=== PATIENT | female | born 1965 | race Caucasian/White ===

== ENCOUNTER 2018-05-28 22:22 | Observation (INO) | payer SELFPAY ==
[~2018-05-28] VITALS: Ht 162.6 cm; Wt 76.7 kg
[~2018-05-28 22:22] MED LIST: HYDROCHLOROTHIA25 MG PO; KEFLEX500 MG PO; LEVOTHYROXINE50 MCG PO; METFORMIN HCL1000 MG PO; TYLENOL WITH C1 EACH PO
[2018-05-28 23:53] LABS: BASOPHILS # (AUTO) 0.1 (0.0-0.1); BASOPHILS % 0.5 % (0.0-1.0); EOSINOPHILS # (AUTO) 0.1 (0.0-0.4); EOSINOPHILS % 0.7 % (0.0-6.0); HEMOGLOBIN 14.6 g/dL (12.0-16.0); LYMPHOCYTES # (AUTO) 1.5 (1.0-3.2); LYMPHOCYTES % 16.5 % (18.0-39.1); MEAN CORPUSCULAR HEMOGLOBIN 31.4 pg (28-32); MEAN CORPUSCULAR VOLUME 92.5 fL (81-99); MONOCYTES # (AUTO) 0.6 (0.2-0.8); NEUTROPHILS # (AUTO) 7.1 (2.1-6.9); PLATELET COUNT 277 x10e3/uL (140-360); RED BLOOD COUNT 4.65 x10e6/uL (3.6-5.1); RED CELL DISTRIBUTION WIDTH 13.2 % (11.7-14.4)
[2018-05-28 23:57] LABS: INR 0.95; PARTIAL THROMBOPLASTIN TIME 25.8 seconds (23.8-35.5); PROTHROMBIN TIME 11.9 seconds (11.9-14.5)
[2018-05-29 00:03] LABS: BILIRUBIN,URINE NEGATIVE (NEGATIVE); CLARITY,URINE CLEAR (CLEAR); COLOR,URINE STRAW (YELLOW); EPITHELIAL CELLS,URINE FEW /LPF; KETONES,URINE NEGATIVE (NEGATIVE); LEUKOCYTE ESTERASE ,URINE NEGATIVE (NEGATIVE); NITRITE,URINE NEGATIVE (NEGATIVE); PROTEIN,URINE DIPSTICK NEGATIVE (NEGATIVE); RBC,URINE 0-5 /HPF (0-5); URINE UROBILINOGEN 0.2 mg/dL (0.2 - 1); WBC,URINE (MAN) 0-5 /HPF (0-5)
[2018-05-29 00:05] LABS: ALANINE AMINOTRANSFERASE 8 IU/L (0-55); ALBUMIN 3.8 g/dL (3.5-5.0); ALKALINE PHOSPHATASE 124 IU/L (40-150); ANION GAP 17.9 mmol/L (8-16); BLOOD UREA NITROGEN 6 mg/dL (7-26); BUN/CREATININE RATIO 8 (6-25); CALCIUM 10.2 mg/dL (8.4-10.2); CARBON DIOXIDE 28 mmol/L (22-29); CHLORIDE 100 mmol/L (98-107); CREATINE KINASE 47 IU/L (29-168); CREATININE, SERUM 0.79 mg/dL (0.57-1.11); EST GLOMERULAR FILTRATION RATE > 60 ML/MIN (60-); GLUCOSE 176 mg/dL (74-118); SODIUM 143 mmol/L (136-145)
[2018-05-29 00:06] LABS: POTASSIUM 2.9 mmol/L (3.5-5.1)
[2018-05-29] MEDS ORDERED: POTASSIUM CHLORIDE 20 MEQ TAB CR PO STA (00:07)
[2018-05-29 00:20] LABS: MAGNESIUM 1.5 MG/DL (1.3-2.1)
--- NOTE | 2018-05-29 00:33 | Diagnostic Imaging Report ---
EXAM: CHEST 2 VIEWS, PA and lateral INDICATION: Heart palpitations COMPARISON: PA and lateral view of the chest August 20, 2015 FINDINGS: LINES/TUBES: Stable position right internal jugular vein chest port. LUNGS: No consolidations or edema. Stable scarring left lung base. PLEURA: No effusions or pneumothorax. HEART AND MEDIASTINUM: Normal size and contour. BONES AND SOFT TISSUES: No acute findings. IMPRESSION: No acute thoracic abnormality. Signed by: Dr. Paty Solis M.D. on 05/29/2018 12:29 AM
[2018-05-29 00:46] LABS: THYROID STIMULATING HORMONE 5.631 uIU/mL (0.350-4.940)
[2018-05-29] MEDS ORDERED: ADENOSINE 6MG/2ML 3 ML ONE (01:28)
[2018-05-29] MEDS ORDERED: SODIUM CHLORIDE 0.9% 1000ML 1,000 ML ONE (01:28)
[2018-05-29] MEDS ORDERED: ADENOSINE 6 MG/2 ML VIAL IV ONE (01:30)
[2018-05-29] MEDS ORDERED: KCL 20MEQ/.9 SOD CHL 1,000 ML IV STA (01:30)
[2018-05-29] MEDS ORDERED: KCL 20MEQ/.9 SOD CHL 1,000 ML IV ONE (01:34)
[2018-05-29 01:52] LABS: AMPHETAMINES SCREEN,URINE NEGATIVE (NEGATIVE); BENZODIAZEPINES SCREEN,URINE NEGATIVE (NEGATIVE); PHENCYCLIDINE SCREEN,URINE NEGATIVE (NEGATIVE)
[2018-05-29] MEDS ORDERED: METOPROLOL TARTRATE 25 MG TAB PO ONE (02:00)
[2018-05-29] MEDS ORDERED: METOPROLOL TARTRATE 25 MG TAB PO STA (02:37)
[2018-05-29] MEDS ORDERED: METOPROLOL TARTRATE 25 MG TAB ONE (02:41)
[2018-05-29] MEDS ORDERED: ONDANSETRON HCL INJ 2 MG/ML VIAL IV PRN (03:15)
[2018-05-29] MEDS ORDERED: DEXTROSE 50% SYRINGE 50 ML IV PRN (03:15)
[2018-05-29 04:00] VITALS: BP 142/77
[2018-05-29] MEDS ORDERED: HYDROCHLOROTHIA25 MG PO (04:44)
[2018-05-29 08:05] VITALS: BP 121/79
[2018-05-29 08:08] VITALS: BP 121/79
[2018-05-29] MEDS: INSULIN REGULAR, HUMAN 100 UNIT/1 ML 3ML VIAL SQ SCH ×2 (08:45→11:30)
[2018-05-29] MEDS ORDERED: LEVOTHYROXINE SODIUM 50 MCG TAB PO SCH (09:00)
[2018-05-29] MEDS ORDERED: METFORMIN HCL 500 MG TAB PO SCH (09:00)
[2018-05-29] MEDS ORDERED: METOPROLOL TARTRATE 25 MG TAB PO SCH (09:00)
[2018-05-29] MEDS ORDERED: ASPIRIN 81 MG ENTERIC COATED PO SCH (09:00)
[2018-05-29 09:17] LABS: CREATINE KINASE 38 IU/L (29-168)
[2018-05-29 09:18] LABS: FREE THYROXINE INDEX 2.4301 (1.4-3.8); THYROID STIMULATING HORMONE 3.782 uIU/mL (0.350-4.940)
--- NOTE | 2018-05-29 09:22 | History and Physical ---
REFERRING PHYSICIAN: Dr. Josey Rosen HISTORY OF PRESENT ILLNESS: The patient is a 52-year-old woman. She has a history of breast cancer 2 years ago. She had a lumpectomy and lymph node dissection. She did have spread to the axillary nodes. She received 3 cycles of chemotherapy and completed her treatment 2 years ago. Her last mammogram a year and a half ago was normal. She has a history of supraventricular tachycardia several years ago when she had a low potassium from chemotherapy. She now comes to the emergency department with palpitations. She does not complain of chest pain or difficulty breathing. EKG shows supraventricular tachycardia. She converted with medications. PAST SURGICAL HISTORY: Status post breast surgery. PAST MEDICAL HISTORY: 1. Breast cancer as noted above. 2. Hypertension. 3. Diabetes mellitus. 4. Hypothyroidism. SOCIAL HISTORY: Patient is not a smoker, and active drinker. FAMILY HISTORY: Significant for hypertension. ALLERGIES: THERE ARE NO KNOWN DRUG ALLERGIES. REVIEW OF SYSTEMS: The patient had no fever or headache. There is no neck pain. She has no chest pain. There is no dyspnea or cough. She has no abdominal pain. There is no nausea or vomiting. She has no leg edema. There are no neurological complaints. PHYSICAL EXAMINATION: VITAL SIGNS: The patient is afebrile. She is in normal sinus rhythm at this time. Her blood pressure is 121/79 and her pulse ox is 96%. HEENT: Showed no facial swelling or erythema. The nasal mucosa is normal. The oropharynx is normal. LYMPHATIC: Showed no submandibular, cervical, or supraclavicular adenopathy. CARDIAC: Reveals a regular rate and rhythm with a normal S1 and S2. CHEST: Auscultation of lungs reveals clear breath sounds bilaterally. There is no wheezing. ABDOMEN: Soft and nontender. There is no rebound or guarding. EXTREMITIES: Examination of the extremities shows no leg edema or calf tenderness. There is no cyanosis or clubbing. SKIN: Shows no rashes. NEUROLOGICAL: Shows no focal abnormalities. IMPRESSION: 1. Supraventricular tachycardia. 2. Hypokalemia. 3. History of breast cancer. 4. History of hypertension. PLAN: 1. Patient will have an echocardiogram and cardiology consultation. 2. Replete potassium. 3. Check magnesium. 4. Check thyroid function test. Job#: [id number]
[2018-05-29] MEDS ORDERED: POTASSIUM CHLORIDE 20 MEQ TAB CR PO ONE (09:30)
[2018-05-29 12:25] VITALS: BP 123/83
--- NOTE | 2018-05-29 13:02 | Consultation ---
DATE OF CONSULTATION: May 29, 2018 CARDIOLOGY CONSULTATION REFERRING PHYSICIAN: Dr. Javon Chambers. REASON FOR CONSULTATION: Paroxysmal supraventricular tachycardia. HISTORY OF PRESENT ILLNESS: Ms. Forman is a 52-year-old woman with a history of breast cancer status post lumpectomy and lymph node dissection, diabetes, hypertension, and history of paroxysmal supraventricular tachycardia in the setting of an electrolyte derangement while on chemotherapy, who reports taking hydrochlorothiazide and antihypertensive at home. She presents to the emergency department with complaints of palpitation and was noted to have paroxysmal supraventricular tachycardia that was treated appropriately in the ER, currently in sinus rhythm. Her potassium initially was 2.9 and is currently being repleted. She denies any chest pain or syncope. She has no other complaints at this point in time. REVIEW OF SYSTEMS: A 12-system review negative except for as noted above. ALLERGIES: NO KNOWN DRUG ALLERGIES. PAST MEDICAL HISTORY: As described above. Hypertension, diabetes mellitus, hypothyroidism, paroxysmal supraventricular tachycardia, and breast cancer status post lumpectomy and lymph node resection. FAMILY HISTORY: Noncontributory. SOCIAL HISTORY: Denies smoking, alcohol or drugs. PHYSICAL EXAMINATION VITAL SIGNS: Temperature 96.6, heart rate 79, blood pressure is 121/79, respiratory rate 18, O2 sat 96%. GENERAL: In no acute distress. Alert. NECK: No JVD. CHEST: Clear to auscultation. CARDIOVASCULAR: Regular rate and rhythm. Normal S1 and S2. No S3 or S4. No murmurs or rubs. ABDOMEN: Soft, nontender. EXTREMITIES: No edema. Warm distal extremities. ELECTROCARDIOGRAM: Sinus rhythm with poor R-wave progression in precordial leads. STUDIES: Reviewed. Potassium 2.9, sodium 143, bicarbonate 28, creatinine 0.79, glucose 176. White blood cells 9.3, hemoglobin 14.6, platelets 177. INR 0.9, AST 12, ALT 8. CARDIOVASCULAR MEDICATIONS: Reviewed. On aspirin 81 mg daily, metoprolol tartrate 12.5 mg every 12 hours, levothyroxine. TSH was within normal range. ASSESSMENT 1. Paroxysmal supraventricular tachycardia, currently in sinus rhythm. 2. Hypokalemia. 3. Hypertension. 4. Diabetes mellitus. 5. Hypothyroidism. 6. History of breast cancer. RECOMMENDATIONS 1. Had advised on switching home antihypertensives from hydrochlorothiazide to beta edith and to have outpatient followup and further workup as needed and assess response as outpatient. 2. Correct electrolyte derangement. 3. Outpatient followup advised in 4 to 8 weeks. Job#: [id number]
[2018-05-29] MEDS ORDERED: LOPRESSOR25 MG PO (14:05)
[2018-05-29 14:45] LABS: CREATINE KINASE 31 IU/L (29-168)
== END 2018-05-29 15:00 | disposition home or self-care (01) ==
LOC: ER 22:22 → ERHOLD 05-29 03:09 → MED/SURG2 05-29 03:37
PROVIDERS: ADMIT Internal Medicine Critical Care Medicine; ATTEND Internal Medicine Critical Care Medicine
DX: R00.2 Palpitations (principal); I10 Essential (primary) hypertension; E11.9 Type 2 diabetes mellitus without complications; E03.9 Hypothyroidism, unspecified; E78.5 Hyperlipidemia, unspecified; Z83.3 Family history of diabetes mellitus; Z82.49 Family history of ischemic heart disease and other diseases of the circulatory system; I47.1 Supraventricular tachycardia; E87.6 Hypokalemia; Z85.3 Personal history of malignant neoplasm of breast
CPT/HCPCS: 36415 ×2; 71046; 80053; 80307; 81001; 82550 ×2; 82553 ×2; 82948; 83735; 84132; 84436; 84443; 84479; 84484 ×2; 85025; 85379; 85610; 85730; 93005 ×2; 99284; G0378; J0153; J7030

== ENCOUNTER 2022-03-22 17:56 | Emergency (ER) | payer SELFPAY ==
[~2022-03-22] VITALS: Ht 162.6 cm; Wt 76.7 kg
[~2022-03-22 17:56] MED LIST changes: +LOPRESSOR25 MG PO
[2022-03-22] MEDS ORDERED: ONDANSETRON HCL 4 MG ORAL DISINTEGRATING TAB PO ONE (18:15)
[2022-03-22] MEDS ORDERED: ONDANSETRON ODT4 MG PO (19:38)
[2022-03-22] MEDS ORDERED: IBUPROFEN600 MG PO (19:38)
[2022-03-22] MEDS ORDERED: METOPROLOL TARTRATE INJ 1 MG/ML VIAL IV ONE (21:15)
[2022-03-22] MEDS ORDERED: ONDANSETRON HCL 4 MG ORAL DISINTEGRATING TAB ONE (21:18)
[2022-03-22] MEDS ORDERED: METOPROLOL TARTRATE INJ 1 MG/ML VIAL ONE (21:28)
[2022-03-22] MEDS ORDERED: METOPROLOL TARTRATE 25 MG TAB ONE ×2 (21:30→21:34)
[2022-03-22] MEDS ORDERED: METOPROLOL TARTRATE 25 MG TAB PO ONE (21:30)
[2022-03-22] MEDS ORDERED: SODIUM CHLORIDE 0.9% 1000ML 1,000 ML ONE (21:58)
[2022-03-22] MEDS ORDERED: SODIUM CHLORIDE 0.9% 1000ML 1,000 ML IV ONE (22:00)
[2022-03-22 22:03] LABS: ALBUMIN 3.6 g/dL (3.5-5.0); ALBUMIN/GLOBULIN RATIO 0.8 (0.8-2.0); ANION GAP 20.3 mmol/L (8-16); CALCIUM 8.6 mg/dL (8.4-10.2); CREATININE, SERUM 0.81 mg/dL (0.57-1.11); POTASSIUM 3.3 mmol/L (3.5-5.1)
[2022-03-22 22:09] LABS: BASOPHILS % 0.5 % (0.0-1.0); EOSINOPHILS % 0.2 % (0.0-6.0); HEMATOCRIT 44.3 % (34.2-44.1); HEMOGLOBIN 14.9 g/dL (12.0-16.0); LYMPHOCYTES # (AUTO) 2.1 (1.0-3.2); LYMPHOCYTES % 33.3 % (18.0-39.1); MEAN CORPUSCULAR HGB CONC 33.6 g/dL (31-35); MEAN CORPUSCULAR VOLUME 92.3 fL (81-99); MONOCYTES # (AUTO) 0.5 (0.2-0.8); MONOCYTES % 8.6 % (4.4-11.3); NEUTROPHILS # (AUTO) 3.6 (2.1-6.9); NEUTROPHILS % 56.9 % (38.7-80.0); PLATELET COUNT 265 x10e3/uL (140-360); RED CELL DISTRIBUTION WIDTH 13.7 % (11.7-14.4)
[2022-03-22 23:17] VITALS: BP 120/89
== END 2022-03-22 23:18 | disposition home or self-care (01) ==
LOC: ER 18:01
DX: R05.9 Cough, unspecified (principal); U07.1 COVID-19; I10 Essential (primary) hypertension; E11.65 Type 2 diabetes mellitus with hyperglycemia; E78.5 Hyperlipidemia, unspecified; E03.9 Hypothyroidism, unspecified; Z85.3 Personal history of malignant neoplasm of breast; F17.210 Nicotine dependence, cigarettes, uncomplicated
CPT/HCPCS: 36415; 80053; 83735; 85025; 93005; 99284; J7030; Q0162; U0002

== ENCOUNTER 2022-06-24 13:31 | Emergency (ER) | payer SELFPAY ==
[~2022-06-24] VITALS: Ht 162.6 cm; Wt 76.7 kg
[~2022-06-24 13:31] MED LIST changes: +IBUPROFEN600 MG PO; +ONDANSETRON ODT4 MG PO
[2022-06-24] MEDS ORDERED: IBUPROFEN 400 MG TAB PO ONE (14:15)
[2022-06-24] MEDS ORDERED: ACETAMINOPHEN 325 MG TAB PO ONE (14:15)
[2022-06-24] MEDS ORDERED: VOLTAREN ARTHRI20 GM TOP (14:33)
[2022-06-24] MEDS ORDERED: METFORMIN HCL500 MG PO (15:42)
== END 2022-06-24 15:45 | disposition home or self-care (01) ==
LOC: ER 13:36
DX: M25.561 Pain in right knee (principal); M17.11 Unilateral primary osteoarthritis, right knee; I10 Essential (primary) hypertension; E11.9 Type 2 diabetes mellitus without complications; E78.5 Hyperlipidemia, unspecified; E03.9 Hypothyroidism, unspecified; Z85.3 Personal history of malignant neoplasm of breast; F17.210 Nicotine dependence, cigarettes, uncomplicated
CPT/HCPCS: 99283

== ENCOUNTER 2022-08-06 13:01 | Emergency (ER) | payer SELFPAY ==
[~2022-08-06] VITALS: Ht 162.6 cm; Wt 76.7 kg
[~2022-08-06 13:01] MED LIST changes: +METFORMIN HCL500 MG PO; +VOLTAREN ARTHRI20 GM TOP
[2022-08-06 13:53] LABS: BASOPHILS % 0.5 % (0.0-1.0); EOSINOPHILS # (AUTO) 0.1 (0.0-0.4); EOSINOPHILS % 0.7 % (0.0-6.0); HEMATOCRIT 44.6 % (34.2-44.1); HEMOGLOBIN 14.5 g/dL (12.0-16.0); LYMPHOCYTES # (AUTO) 1.6 (1.0-3.2); LYMPHOCYTES % 20.7 % (18.0-39.1); MEAN CORPUSCULAR HEMOGLOBIN 31.4 pg (28-32); MEAN CORPUSCULAR HGB CONC 32.5 g/dL (31-35); MEAN CORPUSCULAR VOLUME 96.5 fL (81-99); MONOCYTES # (AUTO) 0.4 (0.2-0.8); MONOCYTES % 5.3 % (4.4-11.3); NEUTROPHILS # (AUTO) 5.4 (2.1-6.9); NEUTROPHILS % 72.4 % (38.7-80.0); PLATELET COUNT 253 x10e3/uL (140-360); RED BLOOD COUNT 4.62 x10e6/uL (3.6-5.1); RED CELL DISTRIBUTION WIDTH 11.9 % (11.7-14.4)
[2022-08-06 14:14] LABS: ALBUMIN 3.9 g/dL (3.5-5.0); ALBUMIN/GLOBULIN RATIO 1.2 (0.8-2.0); ANION GAP 17.8 mmol/L (8-16); CALCIUM 9.1 mg/dL (8.4-10.2); CREATININE, SERUM 0.8 mg/dL (0.57-1.11); POTASSIUM 3.8 mmol/L (3.5-5.1)
[2022-08-06] MEDS ORDERED: IOPAMIDOL 370 MG/ML 100 ML INFUS..BTL INJ ONE (14:59)
[2022-08-06] MEDS ORDERED: PENICILLIN V P500 MG PO (16:29)
== END 2022-08-06 16:36 | disposition home or self-care (01) ==
LOC: ER 13:08
DX: K04.7 Periapical abscess without sinus (principal); K02.9 Dental caries, unspecified; E11.65 Type 2 diabetes mellitus with hyperglycemia; I10 Essential (primary) hypertension; E78.5 Hyperlipidemia, unspecified; E03.9 Hypothyroidism, unspecified; Z85.3 Personal history of malignant neoplasm of breast
CPT/HCPCS: 36415; 70487; 80053; 85025; 99284; Q9967